=== PATIENT | male | born 1935 | race Caucasian/White ===

== ENCOUNTER 2023-01-12 19:50 | Emergency (ER) | payer MEDICARE ==
[~2023-01-12] VITALS: Ht 177.8 cm; Wt 65.8 kg
[2023-01-12] MEDS ORDERED: BACI30OI9 TP (20:42)
[2023-01-12] MEDS ORDERED: SULF1TAB47 PO (20:42)
[2023-01-12] MEDS ORDERED: SULFAMETH/TRIMETH 800/160 MG 1 UDTAB TABLET ONE (20:58)
[2023-01-12 20:59] VITALS: BP 145/88; TEMP 98; O2SAT 97
[2023-01-12] MEDS: BACI/NEOM/POLY B OINT PKT 1 UDPKT PACKET TP ONE (20:59)
[2023-01-12] MEDS: SULFAMETH/TRIMETH 800/160 MG 1 UDTAB TABLET PO ONE (20:59)
== END 2023-01-12 21:00 | disposition home or self-care (01) ==
LOC: ER 19:56 → EDSEX 19:56 → ER 21:00
DX: S81.811D Laceration without foreign body, right lower leg, subsequent encounter (principal); L03.115 Cellulitis of right lower limb; Z48.02 Encounter for removal of sutures; X58.XXXD Exposure to other specified factors, subsequent encounter